=== PATIENT | male | born 1955 | race Caucasian/White ===

== ENCOUNTER → 2022-10-15 09:14 | Outpatient (CLI) | payer OTHER, SELFPAY ==
--- NOTE | ~2022-10-15 | MR_ITS ---
MRI of the lumbar spine Clinical History: Sciatica Technique: Axial T2-weighted images, and sagittal T1-weighted, T2-weighted, and and T2 fat-sat images were acquired. Findings: There is no fracture or subluxation of the lumbar spine. Vertebral bodies maintain normal h eight and alignment. No suspicious bone marrow signal abnormality seen. At L1-L2, there is mild disc bulge with small central disc protrusion and mild to moderate facet arth ropathy. No leilani central canal stenosis or neural foraminal narrowing. At L2-L3, there is no disc bulge or herniation. There is mild facet arthropathy. No spinal canal sten osis or neural foraminal narrowing. At L3-L4, there is no disc bulge or herniation. There is mild facet arthropathy. No spinal canal sten osis. There is probable minimal left neural foraminal narrowing. Right neural foramen preserved. At L4-L5, there is minimal disc bulge. There is severe facet arthropathy with associated 6 mm right-s ided synovial cyst. This results in mild compression of the right-sided thecal sac and probable right lateral recess stenosis. Neural foramina are relatively well preserved otherwise. At L5-S1, there is mild disc bulge with tiny annular fissure. There is mild to moderate facet arthrop athy. No spinal canal stenosis or neural foraminal narrowing. Paravertebral soft tissues are unremarkable. Impression: Moderate degenerative spondylosis particularly at L4-L5, with degenerative changes and a 6 mm right-s ided synovial cyst. Please see details above. Mild degenerative change in the remaining lumbar spine. Reviewed, dictated and finalized at [facility]. Impression: Moderate degenerative spondylosis particularly at L4-L5, with degenerative estrella ges and a 6 mm right-sided synovial cyst. Please see details above. Mild degenerative change in the remaining lumbar spine.
== END ==
PROVIDERS: PCP Family Medicine Adolescent Medicine; Visit Provider Family Medicine Adolescent Medicine
DX: M54.31 Sciatica, right side (principal); M54.32 Sciatica, left side; M47.896 Other spondylosis, lumbar region
CPT/HCPCS: 72148

== ENCOUNTER 2022-10-15 09:55 | Emergency (ER) | payer OTHER, SELFPAY ==
[2022-10-15 10:10] VITALS: BP 189/143; PULSE 88; RESP 18; TEMP 35.7; O2SAT 98
--- NOTE | 2022-10-15 10:33 | ED.URI ---
HPI - URI/Sore Throat General Chief Complaint: Upper Respiratory Infection Stated Complaint: for a week, stuffy nose, cough, and fever Time Seen by Provider: 10/15/22 10:25 Source: patient, RN notes reviewed and old records reviewed Mode of arrival: ambulatory Limitations: no limitations History of Present Illness HPI Narrative: 67-year-old male who presents to [facility] with one week duration of initial sinus congestion with sinus pressure which has also moved down to chest with cough and congestion and noted wheezing. Patient reports that he had fever 101 F 2 nights ago. Patient reports that he has been taking Tylenol and DayQuil for his symptoms. Patient reports that he had a MRI of his back today prior to his visit to clinic. Patient reports generalized body discomfort rated 3/10, denies any acute dyspnea . MD elicited complaint: fever, cough, rhinorrhea and nasal congestion Onset (ago): week(s) (1) Pain scale (0-10): 3 Able to tolerate fluids by mouth: Yes Treatments prior to arrival: acetaminophen and other (DayQuil) Related Data Allergies Allergy/AdvReac Type Severity Reaction Status Date / Time No Known Allergies Allergy Verified 10/15/22 10:22 Review of Systems Review of Systems: CONSTITUTIONAL: Denies malaise, chills, sweats, or fever. EYES: Denies visual changes, redness, or discharge. ENT: Reports rhinorrhea, congestion, sinus pain, otalgia and sore throat. CARDIOVASCULAR: Denies chest pain, palpitations, or edema. RESPIRATORY: Reports cough.? Denies dyspnea. GASTROINTESTINAL: Denies abdominal pain, nausea, vomiting, diarrhea SKIN: Denies rash or itching. MUSCULOSKELETAL: Denies myalgia. NEUROLOGIC: Denies headache. All systems reviewed & are unremarkable except as noted in HPI and below PMFSH Past Medical History Medical History (Updated 10/15/22 @ 12:15 by Fely Alberts NP) Bilateral sciatica Generalized anxiety disorder Surgical History Surgical History (Updated 06/30/21 @ 08:13 by Selvin Reddy MD) History of inguinal hernia repair 1996, 2018, right 2019, left History of umbilical hernia repair 1995 History of vasectomy Family History Family History (Updated 07/03/21 @ 07:53 by Jodie Gustafson MA) Father Family history of cardiovascular disease Heart disease Social History Social History (Updated 07/03/21 @ 07:54 by Jodie Gustafson MA) Smoking status: Never smoker Second hand tobacco smoke exposure: No Alcohol intake: current Drinks per week: 4 Substance use: never Substance use type: does not use Living arrangements: alone Occupation/Education: occupation Gender identity (if verbalized by the patient): Male Sexual Orientation (if Verbalized by the Patient): Straight or Heterosexual Spiritual care concerns: No Agree to blood products: Yes Comments At time of signature, agree with nursing past medical, surgical, social and family history. There is no relevant family history pertinent to the presenting complaint Exam Narrative: GENERAL: Well-appearing, well-nourished, and in no acute distress. HEAD: Normocephalic EYES: PERRLA, conjunctivae clear ENT: Nares clear, turbinates edematous and erythematous, clear discharge, Mucous membranes moist, sinus pressure. TM pearly wilson with dull light reflex bilaterally; no tragal tenderness. Oropharynx erythematous without lesions. Tonsils not enlarged and without exudate, no drooling, no hoarseness, no trismus, uvula midline.post nasal drainage NECK: Supple. No lymphadenopathy CHEST: Scattered expiratory wheezing noted on auscultation, breath sounds equal. Positive for wheezing, no rhonchi, rales, or stridor. No respiratory distress, speaks in full sentences.SAO2 98% on room air, cough productive yellow drainage. HEART: Regular rate and rhythm. No murmur heard. SKIN: Warm, dry, no rash. NEURO: Alert and oriented x3. PSYCH: Normal mood and affect Course
[2022-10-15 10:51] VITALS: BP 122/79
== END 2022-10-15 10:56 | disposition home or self-care (01) ==
PROVIDERS: Emergency Provider Registered Nurse; PCP Family Medicine Adolescent Medicine
DX: J40 Bronchitis, not specified as acute or chronic (principal); J01.40 Acute pansinusitis, unspecified; Z98.52 Vasectomy status
CPT/HCPCS: 99213; G0463